=== PATIENT | female | born 1995 | race Two or more races ===

== ENCOUNTER 2024-06-05 05:15 | Inpatient (IN) | payer OTHER ==
[~2024-06-05] VITALS: Ht 167.6 cm; Wt 97.1 kg
[2024-06-05] MEDS ORDERED: RINGERS SOLUTION,LACTATED 1,000 ML IV SCH (05:30)
[2024-06-05] MEDS ORDERED: CEFAZOLIN SODIUM 1,000 MG VIAL IV SCH ×2 (06:00→14:00)
[2024-06-05] MEDS ORDERED: OXYTOCIN 20 UNITS/500ML RL PIGGYBAG IV ONE (10:04)
[2024-06-05 10:12] LABS: HEMATOCRIT 32.5 % (36.0-45.00); HEMOGLOBIN 11.1 g/dL (12.0-15.00); MEAN CELL VOLUME 85.2 fL (80.00-100.00); MEAN CORPUSCULAR HGB CONC 34.1 g/dl (32.0-36.0); PLATELET COUNT 275 K/uL (150-450); RED BLOOD COUNT 3.82 M/uL (4.00-6.00); RED CELL DISTRIBUTION WIDTH 14.2 % (11.5-14.5)
[2024-06-05 10:20] LABS: PH,URINE 5.5 (5.0-8.0); URINE APPEARANCE Cloudy; URINE BILIRRUBIN Small (NEGATIVE); URINE BLOOD Negative; URINE COLOR Dark Yellow; URINE GLUCOSE Negative (NEGATIVE); URINE KETONE Trace (NEGATIVE); URINE LEUKOCYTE Negative; URINE NITRATE Negative; URINE PROTEIN Trace (NEGATIVE)
[2024-06-05] MEDS ORDERED: OXYTOCIN 500 ML IV SCH (10:30)
[2024-06-05] MEDS ORDERED: PRENATAL TABLE1 EAC1 (10:31)
[2024-06-05] MEDS ORDERED: VAZALORE81 MG (10:32)
[2024-06-05 10:34] LABS: URINE BACTERIA 555.6 uL (0.0-1933); URINE EPITHELIAL CELLS 47.4 uL (0.0-38.8); URINE RBC 33.2 uL (0.0-20.8); URINE WBC 11.2 uL (0.0-23.2)
[2024-06-05 10:47] LABS: URINE CAST 0.61 uL (0.0-1.40)
[2024-06-05 10:48] LABS: URINE CRYSTALS FEW /HPF; URINE MUCUS MODERATE
[2024-06-05 11:04] LABS: ALBUMIN 2.6 gm/dL (3.4-5.0); BILIRUBIN TOTAL 0.9 mg/dL (0.3-1.2); CREATININE SERUM 0.45 mg/dL (0.55-1.02); GFR 163.6; POTASSIUM 4.11 mEq/L (3.5-5.1); TOTAL PROTEIN 6.6 gm/dL (6.4-8.2)
[2024-06-05 11:15] LABS: INR 0.98; PARTIAL THROMBOPLASTIN TIME 30.7 SECONDS (22.0-34.0); PROTHROMBIN TIME 10.3 SECONDS (9.0-11.5)
[2024-06-05] MEDS ORDERED: PROMETHAZINE HCL 25 MG/ML AMPUL IV ONE (12:30)
[2024-06-05] MEDS ORDERED: MEPERIDINE HCL/PF 50 MG/ML VIAL IV ONE (12:30)
[2024-06-05] MEDS ORDERED: ERYTHROMYCIN BASE 1 GM TUBE OP ONE ×2 (15:19→21:00)
[2024-06-05] MEDS ORDERED: CHLORHEXIDINE GLUCONATE 120 ML BOTTLE TOP ONE ×2 (15:19→21:00)
[2024-06-05] MEDS ORDERED: OXYTOCIN 20 UNITS/1000ML RL PIGGYBAG IV ONE (15:19)
[2024-06-05] MEDS ORDERED: LIDOCAINE HCL 1% 10ML VIAL ONE (15:20)
[2024-06-05] MEDS ORDERED: IBUprofen 600 MG TABLET PO SCH (20:45)
[2024-06-05] MEDS ORDERED: LIDOCAINE HCL 1% 10ML VIAL PERCUT ONE (21:00)
[2024-06-05] MEDS ORDERED: OXYTOCIN 20 UNITS/1000ML RL PIGGYBAG IV SCH (21:00)
[2024-06-06] MEDS ORDERED: IBUprofen 600 MG TABLET PO SCH (12:00)
[2024-06-06 12:53] LABS: HEMATOCRIT 24.8 % (36.0-45.00); MEAN CELL VOLUME 85.6 fL (80.00-100.00); MEAN CORPUSCULAR HEMOGLOBIN 29.3 pg (27.00-32.0); MEAN CORPUSCULAR HGB CONC 34.3 g/dl (32.0-36.0); PLATELET COUNT 233 K/uL (150-450); RED CELL DISTRIBUTION WIDTH 14.3 % (11.5-14.5)
[2024-06-06 12:54] LABS: HEMOGLOBIN 8.5 g/dL (12.0-15.00)
[2024-06-06] MEDS ORDERED: FERROUS SULFATE 325 MG TABLET.EC PO SCH (17:00)
== END 2024-06-07 16:59 | disposition home or self-care (01) | DRG 807 ==
LOC: LDR 05:15 → OB/GYN 22:46
PROVIDERS: Obstetrics & Gynecology; ADMIT Specialist; ATTEND Specialist
PROC: 10E0XZZ Delivery of Products of Conception, External Approach (ICD-10-PCS; principal; 2024-06-05)
PROC: 0UQMXZZ Repair Vulva, External Approach (ICD-10-PCS; 2024-06-05)
PROC: 4A1HXCZ Monitoring of Products of Conception, Cardiac Rate, External Approach (ICD-10-PCS; 2024-06-05)
DX: O71.82 Other specified trauma to perineum and vulva (principal); O99.824 Streptococcus B carrier state complicating childbirth; Z37.0 Single live birth; Z3A.39 39 weeks gestation of pregnancy; Z20.822 Contact with and (suspected) exposure to COVID-19